=== PATIENT | female | born 1975 | race Two or more races ===

== ENCOUNTER 2017-07-16 10:32 | Emergency (ER) | payer BC ==
[~2017-07-16] VITALS: Ht 149.9 cm; Wt 38.6 kg
--- NOTE | 2017-07-16 11:09 | NUR ---
Patient discharged to home in stable conditon. Written and verbal after care instructions given. Patient verbalizes understanding of instructions.PT WALKS IN STEADY GAIT. NO SIGN OF DISTRESS.
[2017-07-16 11:13] VITALS: BP 127/76
== END 2017-07-16 11:15 | disposition home or self-care (01) ==
LOC: ER 10:32
DX: F41.9 Anxiety disorder, unspecified (principal); Z88.6 Allergy status to analgesic agent
CPT/HCPCS: 99284; A4663